=== PATIENT | male | born 1955 | race Caucasian/White ===

== ENCOUNTER 2025-02-07 13:37 | Outpatient (RCR) | payer MEDICARE, OTHER, SELFPAY | END 2025-02-07 23:59 | disposition home or self-care (01) | LOC: RPT 13:37 | PROVIDERS: ATTENDING PHYSICIAN Orthopaedic Surgery; FAMILY PHYSICIAN Physician Assistant | DX: M54.50 Low back pain, unspecified (principal); M25.561 Pain in right knee; M25.562 Pain in left knee; M25.552 Pain in left hip; Z73.6 Limitation of activities due to disability; Z96.651 Presence of right artificial knee joint; Z85.46 Personal history of malignant neoplasm of prostate | CPT/HCPCS: 97110; 97163 ==

== ENCOUNTER 2025-03-03 13:14 | Outpatient (RCR) | payer MEDICARE, OTHER, SELFPAY | END 2025-03-04 09:38 | disposition home or self-care (01) | LOC: RPT 13:14 | PROVIDERS: ATTENDING PHYSICIAN Orthopaedic Surgery; FAMILY PHYSICIAN Physician Assistant | DX: M54.50 Low back pain, unspecified (principal); M25.561 Pain in right knee; M25.562 Pain in left knee; M25.552 Pain in left hip; M25.551 Pain in right hip; Z73.6 Limitation of activities due to disability; Z96.651 Presence of right artificial knee joint; Z85.46 Personal history of malignant neoplasm of prostate | CPT/HCPCS: 97110; 97140 ==